=== PATIENT | female | born 1990 | race Caucasian/White ===

== ENCOUNTER 2025-07-04 13:19 | Emergency (ER) | payer BC ==
[~2025-07-04] VITALS: Ht 162.6 cm; Wt 68.0 kg
[2025-07-04 13:42] VITALS: TEMP 97.3
[2025-07-04 14:56] LABS: PLATELET COUNT (AUTO) 418 K/uL (150-450); RED BLOOD CELL COUNT(AUTO) 4.10 MIL/uL (4.00-5.20); RED CELL DISTRIBUTION WIDTH 13.2 % (11.5-14.5); WHITE BLOOD COUNT (AUTO) 13.7 K/uL (4.5-11.0)
[2025-07-04 15:09] LABS: CALCIUM, TOTAL 8.9 mg/dL (8.8-10.5); CREATININE 0.81 mg/dL (0.60-1.30); GLOMERULAR FILTR. RATE CALC > 60 mL/min (>60); GLUCOSE,RANDOM 138 mg/dL (70-110); SODIUM SERUM 138 mmol/L (136-145); UREA NITROGEN, BLOOD 11 mg/dL (7-18)
[2025-07-04] MEDS: METOCLOPRAMIDE HCL 5 MG/ML 2 ML VIAL IVP ONE (15:22)
[2025-07-04] MEDS: SODIUM CHLORIDE 0.9% 1,000 ML IV ONE (15:23)
[2025-07-04 17:55] VITALS: BP 113/65; PULSE 89; RESP 18; O2SAT 99
[2025-07-04 18:05] LABS: APPEARANCE,URINE CLEAR (CLEAR); GLUCOSE, URINE (UA) NEGATIVE (NEGATIVE); LEUKOCYTE ESTERASE ,URINE NEGATIVE (NEGATIVE); NITRATE,URINE NEGATIVE (NEGATIVE); OCCULT BLOOD,URINE MODERATE (NEGATIVE); SPECIFIC GRAVITIY, URINE 1.016 (1.003-1.030)
[2025-07-04 18:38] LABS: HCG,QUAL URINE NEGATIVE (NEGATIVE)
[2025-07-04] MEDS ORDERED: METO5TAB95 PO (19:02)
== END 2025-07-04 19:12 | disposition home or self-care (01) ==
LOC: EMS 13:22
DX: R11.2 Nausea with vomiting, unspecified (principal); J45.909 Unspecified asthma, uncomplicated; G40.909 Epilepsy, unspecified, not intractable, without status epilepticus
CPT/HCPCS: 99283; 96374; 96361; 80048; 81001; 84703; 85025; 36415; J2765; J7030